=== PATIENT | female | born 1970 | race Caucasian/White ===

== ENCOUNTER 2018-09-10 06:16 | Emergency (ER) | payer MEDICAID ==
[~2018-09-10] VITALS: Ht 157.5 cm; Wt 52.6 kg
[2018-09-10 06:35] VITALS: BP_SYST 100
[2018-09-10] MEDS ORDERED: ATOR20TA64 PO (06:47)
[2018-09-10] MEDS ORDERED: CYCLOBENZAPRINE HCL 10 MG TABLET (FLEXERIL) PO ONE (07:15)
[2018-09-10] MEDS ORDERED: KETOROLAC TROMETHAMINE 30 MG VIAL IM ONE (07:15)
[2018-09-10 07:43] LABS: BILIRUBIN,URINE NEGATIVE (NEGATIVE); BLOOD, URINE 2+ (NEGATIVE); CLARITY/URINE CLEAR (CLEAR); COLOR,URINE YELLOW (YELLOW); GLUCOSE,URINE NEGATIVE (NEGATIVE); KETONES,URINE NEGATIVE (NEGATIVE); LEUKOCYTE ESTERASE ,URINE NEGATIVE (NEGATIVE); NITRITE, URINE NEGATIVE (NEGATIVE); PROTEIN URINE NEGATIVE (NEGATIVE); UROBILINOGEN,URINE 0.2 (0.2-1.0)
[2018-09-10] MEDS ORDERED: MORPHINE 4 MG/ML INJ. SYRINGE IM ONE (07:45)
[2018-09-10 07:53] LABS: BACTERIA,URINE FEW /HPF (None Seen); MUCUS,URINE 1+ /LPF (None Seen); RBC,URINE 0-3 /HPF (0-3); WBC,URINE 0-3 /HPF (0-3)
[2018-09-10] MEDS ORDERED: MORPHINE 2 MG/ML INJ. SYRINGE IM ONE (09:15)
[2018-09-10 09:45] VITALS: BP_SYST 100
== END 2018-09-10 09:45 | disposition home or self-care (01) ==
LOC: SED 06:16
DX: N83.201 Unspecified ovarian cyst, right side (principal); M54.30 Sciatica, unspecified side; K59.09 Other constipation; E78.00 Pure hypercholesterolemia, unspecified
CPT/HCPCS: 74176; 81000; 96372; 99284; J1885; J2270 ×2

== ENCOUNTER 2022-12-12 12:37 | Emergency (ER) | payer MEDICAID ==
[~2022-12-12] VITALS: Ht 157.5 cm; Wt 47.6 kg
[~2022-12-12 12:37] MED LIST: ATOR20TA64 PO
[2022-12-12 12:57] VITALS: BP_SYST 122
--- NOTE | 2022-12-12 15:15 | NUR ---
Naveen tracey in [facility] - 12/12/22 at [email or web address] Hale evaluating patient in the triage room
--- NOTE | 2022-12-12 15:23 | NUR ---
Pt brought by self, A&Ox4, pt presents to ER with sore throat and congestion, skin pink and warm, cap refill <3, VSS.
--- NOTE | 2022-12-12 15:24 | NUR ---
Dr Hale evaluating patient in the triage room
--- NOTE | 2022-12-12 15:32 | NUR ---
COVID AND FLU SWAB COLLECTED
[2022-12-12] MEDS ORDERED: AZIT500T3 PO (16:34)
[2022-12-12] MEDS ORDERED: PSEU30TA36 PO (16:34)
[2022-12-12 19:25] VITALS: BP_SYST 122
--- NOTE | 2022-12-12 19:25 | NUR ---
Patient given written and verbal discharge instructions and verbalizes understanding. ER MD discussed with patient the results and treatment provided. Patient in stable condition. ID arm band removed. Rx of Zithromaz and Sudafed given. Patient educated on pain management and to follow up with PMD. Pain Scale 2/10. Opportunity for questions provided and answered. Medication side effect fact sheet provided.
== END 2022-12-12 19:25 | disposition home or self-care (01) ==
LOC: SED 12:37
DX: J02.9 Acute pharyngitis, unspecified (principal); R05.9 Cough, unspecified; Z79.899 Other long term (current) drug therapy; Z20.822 Contact with and (suspected) exposure to COVID-19
CPT/HCPCS: 36415; 71045; 99284

== ENCOUNTER 2023-07-30 08:45 | Emergency (ER) | payer MEDICAID ==
[~2023-07-30] VITALS: Ht 160 cm; Wt 49.9 kg
[~2023-07-30 08:45] MED LIST changes: +AZIT500T3 PO; +PSEU30TA36 PO
[2023-07-30 08:54] VITALS: BP_SYST 132; PULSE 86; RESP 20; TEMP 98.3; O2SAT 98
[2023-07-30 09:29] LABS: SERUM HCG (QUALITATIVE) NEGATIVE (NEGATIVE)
[2023-07-30 09:33] LABS: ANION GAP 1 (5-15); CALCIUM 7.7 mg/dL (8.4-11.0); CARBON DIOXIDE 29 mmol/L (23-29); CHLORIDE 102 mmol/L (98-107); CREATININE 0.63 mg/dL (0.55-1.30); GFR AFRICAN AMERICAN 126 mL/min (>90); GLUCOSE 125 mg/dL (74-106); POTASSIUM 3.6 mmol/L (3.5-5.1); SODIUM SERUM 132 mmol/L (136-145); UREA NITROGEN, BLOOD 16 mg/dL (8-21)
[2023-07-30 09:34] LABS: BASOPHILS % (AUTO) 0.7 % (0.0-2.0); EOSINOPHILS # (AUTO) 0.3 K/uL (0.0-0.4); EOSINOPHILS % (AUTO) 7.7 % (0.0-4.0); HEMATOCRIT 42.1 % (36-48); LYMPHOCYTES # (AUTO) 1.5 K/uL (1.0-5.5); LYMPHOCYTES % (AUTO) 39.1 % (20.5-51.5); MEAN CORPUSCULAR HEMOGLOBIN 31 pg (27-31); MEAN CORPUSCULAR HGB CONC 33 % (32-36); MEAN CORPUSCULAR VOLUME 92 fL (79.0-98.0); MONOCYTES # (AUTO) 0.2 K/uL (0.0-1.0); MONOCYTES % (AUTO) 6.2 % (1.7-9.3); NEUTROPHILS # (AUTO) 1.8 K/uL (1.8-7.7); NEUTROPHILS % (AUTO) 46.3 % (40.0-70.0); PLATELET COUNT (AUTO) 168 K/uL (130-430); RED BLOOD CELL COUNT(AUTO) 4.58 MIL/uL (4.2-6.2); RED CELL DISTRIBUTION WIDTH 13.6 % (9.0-15.0); WHITE BLOOD COUNT (AUTO) 3.9 K/uL (4.8-10.8)
[2023-07-30 09:39] LABS: GFR NON AFRICAN-AMERICAN 104 mL/min (>90)
[2023-07-30 09:42] LABS: ACETONE, SERUM NEGATIVE (NEGATIVE)
[2023-07-30 09:51] LABS: ALANINE AMINOTRANSFERASE 39 U/L (12-78); ALBUMIN 3.5 g/dL (3.4-4.8); AMYLASE 39 U/L (0-100); ASPARTATE AMINOTRANSFERASE 25 U/L (10-37); LIPASE 61 U/L (73-393); TOTAL BILIRUBIN 0.6 mg/dL (0.0-1.0); TOTAL PROTEIN, SERUM 6.7 g/dL (6.4-8.3)
[2023-07-30 09:53] LABS: BILIRUBIN,URINE NEGATIVE (NEGATIVE); BLOOD, URINE NEGATIVE (NEGATIVE); CLARITY/URINE CLEAR (CLEAR); COLOR,URINE YELLOW (YELLOW); GLUCOSE,URINE NEGATIVE (NEGATIVE); KETONES,URINE NEGATIVE (NEGATIVE); LEUKOCYTE ESTERASE ,URINE TRACE (NEGATIVE); NITRITE, URINE NEGATIVE (NEGATIVE); PROTEIN URINE NEGATIVE (NEGATIVE); UROBILINOGEN,URINE 0.2 (0.2-1.0)
[2023-07-30 10:39] LABS: BACTERIA,URINE FEW /HPF (None Seen); MUCUS,URINE None Seen /LPF (None Seen); RBC,URINE 0-3 /HPF (0-3)
[2023-07-30] MEDS ORDERED: IBUP-1969 PO (12:15)
[2023-07-30] MEDS ORDERED: TRAM50TA2 PO (12:15)
[2023-07-30] MEDS ORDERED: KETOROLAC TROMETHAMINE 60 MG/2 ML VIAL IM ONE (12:30)
[2023-07-30 12:40] VITALS: BP_SYST 117; PULSE 74; RESP 19; TEMP 98; O2SAT 97
== END 2023-07-30 12:49 | disposition home or self-care (01) ==
LOC: SED 08:45
DX: R10.32 Left lower quadrant pain (principal); Z79.899 Other long term (current) drug therapy
CPT/HCPCS: 99285; 74176; 80053; 81000; 82009; 82150; 84703; 83690; 85025; 87086; 36415; 76376; 96372; 83605; 82397; J1885

== ENCOUNTER 2023-08-01 08:46 | Emergency (ER) | payer MEDICAID ==
[~2023-08-01] VITALS: Ht 157.5 cm; Wt 49.9 kg
[~2023-08-01 08:46] MED LIST changes: +IBUP-1969 PO; +TRAM50TA2 PO
[2023-08-01 08:59] VITALS: BP_SYST 138; PULSE 86; RESP 16; TEMP 98; O2SAT 97
[2023-08-01] MEDS ORDERED: KETAMINE HCL 500 MG/10 ML VIAL IM ONE (09:30)
[2023-08-01] MEDS ORDERED: MORPHINE 4 MG INJ. 4 MG/ML VIAL IM ONE (09:30)
[2023-08-01] MEDS ORDERED: KETAMINE HCL IN 0.9 % NACL 50 MG/5 ML SYRINGE IVP ONE (10:00)
[2023-08-01] MEDS ORDERED: SOM350 PO (10:38)
[2023-08-01] MEDS ORDERED: PRED50TA PO (10:38)
[2023-08-01 10:51] VITALS: BP_SYST 119; PULSE 65; RESP 14; TEMP 97.2; O2SAT 99
== END 2023-08-01 10:49 | disposition home or self-care (01) ==
LOC: SED 08:46
DX: M54.42 Lumbago with sciatica, left side (principal); M79.662 Pain in left lower leg; Z79.899 Other long term (current) drug therapy
CPT/HCPCS: 99284; 72100; 96372; J2270